=== PATIENT | female | born 1995 | race Hispanic/Latino ===

== ENCOUNTER 2018-12-17 08:07 | Outpatient (CLI) | payer MEDICAID ==
--- NOTE | 2018-12-17 08:43 | ULT ---
ULTRASOUND PELVIC DOPPLER DUPLEX: DATE: 12/17/2018 HISTORY: 23-year-old female with pelvic pain TECHNIQUE: Transabdominal transducer used to visualize intrapelvic contents with grayscale, color-flow, and spec tral analysis. Endovaginal transducer not used. FINDINGS: Study somewhat limited by lack of transvaginal ultrasound images. Uterus: 8.5 x 4.5 x 5.5 cm. Endometrial stripe: 1.4 cm (14 mm) No obvious large uterine fibroid identified. Right ovary: 2.6 x 1.9 x 2.7 cm. Left ovary: 2.4 x 1.8 x 1.8 cm. No ovarian cyst identified. Blood flow demonstrated in both ovaries by Doppler. Possible very small amount of free fluid in cul-de-sac. IMPRESSION: Thickened endometrial stripe, 14 mm.
== END 2018-12-17 08:08 | disposition home or self-care (01) ==
LOC: BICULT 08:07
PROVIDERS: ATTEND Family Medicine
DX: R10.2 Pelvic and perineal pain (principal); R93.89 Abnormal findings on diagnostic imaging of other specified body structures
CPT/HCPCS: 76856; 93976

== ENCOUNTER 2019-08-23 12:01 | Emergency (ER) | payer SELFPAY ==
[2019-08-23] MEDS ORDERED: Ketorolac Tromethamine 30 MG/ML VIAL ONE (13:08)
--- NOTE | 2019-08-23 14:34 | RAD ---
LEFT SHOULDER 3 VIEWS: Date; 08/23/2019 HISTORY: Injury, left shoulder pain. FINDINGS/IMPRESSION: No acute fracture or dislocation is identified. POS: [facility]
== END 2019-08-23 13:55 | disposition home or self-care (01) ==
LOC: ERS 12:01
DX: M25.512 Pain in left shoulder (principal)
CPT/HCPCS: 96372; J1885

== ENCOUNTER 2019-11-08 12:12 | Emergency (ER) | payer OTHER, SELFPAY ==
[2019-11-08] MEDS ORDERED: Ondansetron ODT 4 MG TAB ONE (13:05)
[2019-11-08 13:29] LABS: Bilirubin Negative (Negative); Blood, Urine Negative (Negative); Clarity Clear (Clear); Glucose, Urine (Dipstick) Normal (Negative); Ketone, Urine Negative (Negative); Leukocyte Negative Leu/uL (Negative); Nitrite Negative (Negative); Protein, Urine (Dipstick) Negative (Neg-Trace); Specific Gravity, Urine 1.024 (1.002-1.036); Urobilinogen Normal mg/dL (Less than 2); pH, Urine 6.5 (5.0-9.0)
[2019-11-08 13:30] LABS: Pregnancy Test - Urine (BHCG) Negative (Negative); Pregu Control Background? CLEAR/WHITE (CLR/WHITE); Pregu Control Bar Appear? YES (CONTROL BAR); Specific Gravity 1.024 (1.002-1.036)
[2019-11-09 15:00] LABS: SARS-CoV-2 MS2 Positive; SARS-CoV-2 N Gene Negative; SARS-CoV-2 S Gene Negative; SARS-CoV-2 by NAA Not Detected (NotDetected); SARS-CoV-2 orf1ab Negative
== END 2019-11-08 13:45 | disposition home or self-care (01) ==
LOC: ERS 12:12
DX: R11.2 Nausea with vomiting, unspecified (principal); Z20.828 Contact with and (suspected) exposure to other viral communicable diseases; J45.909 Unspecified asthma, uncomplicated
CPT/HCPCS: 81003; 81025; 87635; 99284; Q0162; U0003

== ENCOUNTER 2022-06-22 23:13 | Emergency (ER) | payer SELFPAY ==
[2022-06-23 00:33] LABS: #Eosinphils 0.2 thou/uL (0.0-0.7); #Monocytes 0.6 thou/uL (0.11-0.59); #Neutrophils 3.4 thou/uL (1.40-6.50); %Basophils 0.5 % (0.0-1.0); %Eosinophils 3.7 % (0.0-10.0); %Lymphocytes 32.9 % (21.0-51.0); %Neutrophils 53.7 % (42.0-75.0); Hemoglobin 13.1 g/dL (12.0-16.0); Mean Corpuscular HGB CONC 32.1 g/dL (32.0-36.0); Mean Corpuscular Hemoglobin 26.6 pg (27.0-31.0); Mean Corpuscular Volume 82.8 fl (78.0-98.0); Mean Platelet Volume 10.5 fL (7.4-10.4); Platelet Count 276 10x3/uL (130-400); RBC Distribution Width 13.4 % (11.5-14.5); Red Blood Cell (RBC) Count 4.93 mill/uL (4.20-5.40); White Blood Cell (WBC) Count 6.2 10x3/uL (4.8-10.8)
[2022-06-23 00:55] LABS: BHCG - Serum Negative (NEGATIVE); Pregs Control Background? CLEAR/WHITE (CLR/WHITE); Pregs Control Bar Appear? YES (CONTROL BAR)
[2022-06-23] MEDS ORDERED: cefTRIAXone (ROCEPHIN) 1 GM VIAL ONE (00:56)
[2022-06-23 00:57] LABS: ALT (SGPT) 40 U/L (8-55); AST (SGOT) 32 U/L (5-34); Albumin 4.1 g/dL (3.5-5.0); Alkaline Phosphatase 86 U/L (40-110); Anion Gap 12 mmol/L (10-20); BUN (Urea Nitrogen) 7 mg/dL (7.0-18.7); Bilirubin, Total 0.4 mg/dL (0.2-1.2); CK (CPK) 60 U/L (29-168); Calc. Creatinine Clearance 0 mL/min (70-130); Calcium 9.2 mg/dL (7.8-10.44); Carbon Dioxide 22 mmol/L (22-29); Chloride 105 mmol/L (98-107); Estimated GFR 120; Globulin 3.5 g/dL (2.4-3.5); Glucose 101 mg/dL (70-105); Lipase 20 U/L (8-78); Potassium 3.2 mmol/L (3.5-5.1); Protein, Total 7.6 g/dL (6.0-8.3); Sodium 136 mmol/L (136-145)
[2022-06-23] MEDS ORDERED: Iopamidol-370 76% 500 ML MDV (1 ML CHARGE) ONE (08:53)
== END 2022-06-23 04:10 | disposition home or self-care (01) ==
LOC: ERS 23:13
DX: J18.9 Pneumonia, unspecified organism (principal); F17.290 Nicotine dependence, other tobacco product, uncomplicated
CPT/HCPCS: 71045; 71275; 80053; 82550; 83690; 84484; 84703; 85025; 85379; 93005; 96374; J0696; Q9967